=== PATIENT | male | born 1990 | race Caucasian/White ===

== ENCOUNTER 2017-12-05 01:12 | Emergency (ER) | payer SELFPAY ==
[2017-12-05 01:13] VITALS: BMI 23.5
[2017-12-05 01:24] VITALS: RESP 18; TEMP 98.3
[2017-12-05] MEDS ORDERED: Oxycodone/Acetaminophen 5/325 mg Tab PO STA (02:12)
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
[2017-12-05 02:56] VITALS: BP 141/84; PULSE 62; O2SAT 99
--- NOTE | 2017-12-05 08:44 | RAD ---
PROCEDURE: Radiographs of the Left Shoulder HISTORY: Pain COMPARISON: No prior. FINDINGS: BONES: Bone alignment and mineralization are normal. There is no acute displaced fracture or bone destruction. JOINTS: Normal. Glenohumeral and acromioclavicular joints preserved. No osteoarthritis. SOFT TISSUES: Normal. OTHER FINDINGS: None. IMPRESSION: No acute fracture or dislocation.
== END 2017-12-05 02:58 | disposition home or self-care (01) ==
LOC: ED 01:12
DX: M25.512 Pain in left shoulder (principal); M75.52 Bursitis of left shoulder
CPT/HCPCS: 73030; 96372; 99284; J1885